=== PATIENT | male | born 1955 | race Asian ===

== ENCOUNTER 2017-07-21 10:17 | Day surgery (SDC) | payer OTHER ==
[~2017-07-21 10:17] MED LIST: CEFAZOLIN 1 GM INJ; DEXAMETHASONE 4 MG/ML 1 ML INJ; ONDANSETRON 4 MG INJ
[2017-07-21] MEDS ORDERED: PROPOFOL 20 ML (12:56)
[2017-07-21] MEDS ORDERED: FENTAnyl 50 MCG/ML VIAL (12:56)
[2017-07-21] MEDS ORDERED: ROCURONIUM 50 MG INJ (12:56)
[2017-07-21] MEDS: LIDOCAINE 1%/EPI 30 ML INJ (13:02)
[2017-07-21] MEDS: NEOMYC/POLYMYX/HC 10 ML OTIC SUSP LEFT EAR (13:10)
[2017-07-21] MEDS: GELATIN SIZE 100 SPONGE (13:10)
[2017-07-21] MEDS: EPINEPHrine 1 MG INJ (13:30)
== END 2017-07-21 15:34 | disposition home or self-care (01) ==
LOC: SDS 10:17
DX: H66.92 Otitis media, unspecified, left ear (principal); H90.2 Conductive hearing loss, unspecified; E11.9 Type 2 diabetes mellitus without complications
CPT/HCPCS: 69436; 82962